=== PATIENT | male | born 1990 | race Two or more races ===

== ENCOUNTER 2021-04-10 21:27 | Emergency (ER) | payer BC, OTHER ==
[~2021-04-10] VITALS: Ht 177.8 cm; Wt 90.7 kg
[2021-04-10] MEDS ORDERED: HYDROCODONE/APAP 5/325MG TABLET PO ONE (22:30)
--- NOTE | 2021-04-10 22:35 | NUR ---
PT BIBSELF C/O LEFT SIDED NASAL PAIN S/P BEING ELBOWED WHILE PLAYING BASKETBALL. PT AAOX4 BREATHING EVENLY AND UNLABORED. UPON ASSESSMENT, PT HAS LAC AND NASAL DEFORMITY. PT ATTACHED TO MONITOR AND POX. MD AT BEDSIDE.
[2021-04-10] MEDS ORDERED: HYDROCODONE/APAP 5/325MG TABLET ONE (22:58)
--- NOTE | 2021-04-10 23:05 | NUR ---
TAKEN TO CT
--- NOTE | 2021-04-11 00:06 | NUR ---
PAGED DR ARMANDO, FACS, PER 'S ORDER
[2021-04-11] MEDS ORDERED: AMOX/CLAVULANATE 875 MG TABLET PO ONE (00:30)
--- NOTE | 2021-04-11 00:30 | NUR ---
DR WESTBROOK AT BED SIDE SPEAKING TO THE PT
[2021-04-11] MEDS ORDERED: AMOX-430 PO (00:35)
[2021-04-11] MEDS ORDERED: HYDR-3972 PO (00:36)
[2021-04-11] MEDS ORDERED: AMOX/CLAVULANATE 875 MG TABLET ONE (00:42)
--- NOTE | 2021-04-11 00:48 | NUR ---
Patient discharged to home in stable condition. Written and verbal after care instructions given. Patient verbalizes understanding of instruction.
[2021-04-11 00:54] VITALS: BP 120/78
== END 2021-04-11 00:48 | disposition home or self-care (01) ==
LOC: ER 21:29
DX: S02.2XXA Fracture of nasal bones, initial encounter for closed fracture (principal); S01.21XA Laceration without foreign body of nose, initial encounter; Z98.890 Other specified postprocedural states; W50.0XXA Accidental hit or strike by another person, initial encounter; Y93.67 Activity, basketball; Y92.310 Basketball court as the place of occurrence of the external cause; Y99.8 Other external cause status
CPT/HCPCS: 70450-TC; 70486-TC